=== PATIENT | female | born 1985 | race Caucasian/White ===

== ENCOUNTER 2018-11-11 15:58 | Outpatient (CLI) | payer SELFPAY | END 2018-11-11 16:27 | disposition home or self-care (01) | LOC: ORTHO 15:58 | PROVIDERS: ATTEND Orthopaedic Surgery | DX: Z47.2 Encounter for removal of internal fixation device (principal) | CPT/HCPCS: 73610; G0463 ==

== ENCOUNTER 2018-12-17 11:01 | Day surgery (SDC) | payer MEDICAID ==
[2018-12-12 11:33] LABS: ALBUMIN 3.5 G/DL (3.4-5.0); ALBUMIN/GLOBULIN RATIO 0.9 (1.1-1.5); ALKALINE PHOSPHATASE 76 IU/L (46-116); BLOOD UREA NITROGEN 10 MG/DL (7-18); BUN/CREATININE RATIO 11.9 (6.6-38.0); CALCIUM 8.7 MG/DL (8.5-10.1); CHLORIDE 106 MMOL/L (99-107); CREATININE 0.84 MG/DL (0.40-0.90); PRE OP ALT 22 U/L (30-65); PRE OP ANION GAP 7 (8-16); PRE OP AST 16 U/L (10-37); PRE OP BILIRUB, TOTAL 0.3 MG/DL (0.0-1.0); PRE OP GLUCOSE 94 MG/DL (70-104); PRE OP POTASSIUM 4.7 MMOL/L (3.4-5.1); PRE OP SODIUM 140 MMOL/L (135-145); TOTAL CARBON DIOXIDE 26.8 MMOL/L (24-32); TOTAL PROTEIN 7.2 G/DL (6.4-8.2); eGFR 79 ML/MIN
[2018-12-12 11:35] LABS: BASOPHILS % (AUTO) 0.9 % (0-1); EOSINOPHILS # (AUTO) 0.2 X10'3 (0-0.9); EOSINOPHILS % (AUTO) 4.2 % (0-6); LYMPHOCYTES # (AUTO) 1.7 X10'3 (1.1-4.8); LYMPHOCYTES % (AUTO) 35.7 % (21-51); MEAN CORPUSCULAR HEMOGLOBIN 31.9 PG (27.0-31.0); MEAN CORPUSCULAR HGB CONC 33.8 g/dL (33.0-36.5); MEAN CORPUSCULAR VOLUME 94.4 FL (78-98); MEAN PLATELET VOLUME 8.4 FL (7.4-10.4); MONOCYTES # (AUTO) 0.5 X10'3 (0-0.9); MONOCYTES % (AUTO) 11.5 % (2-12); NEUTROPHILS # (AUTO) 2.2 X10'3 (1.8-7.7); NEUTROPHILS % (AUTO) 47.7 % (42-75); PRE OP HEMATOCRIT 36.6 % (35.0-45.0); PRE OP HEMOGLOBIN 12.4 g/dL (12.0-16.0); PRE OP PLATELET COUNT 331 X10'3 (140-440); RED BLOOD COUNT 3.88 X10'6 (4.20-5.60); RED CELL DISTRIBUTION WIDTH 13.7 % (11.5-14.5)
[~2018-12-17] VITALS: Ht 165.1 cm; Wt 85.7 kg
[2018-12-17] VITALS (8 sets, daily range): BP systolic 91–120; BP diastolic 60–74
[~2018-12-17 11:01] MED LIST: BUPIVAcaine/PF 2.5 mg/ml (0.25%) 30ml vial ONE; ESCI5TAB PO; LAMO200T2 PO; MIRT15TA8 PO; bacitracin 15gm ointment TP ONE; ceFAZolin 1000mg inj ONE; cefazolin/dext.iso 2gm/100 ML IV ONE; famotidine 20mg tablet PO ONE; ringers solution, lacted 1,000 ML IV SCH
[2018-12-17] MEDS ORDERED: fentaNYL/PF 50MCG/1 ML 2ML syringe ONE (11:56)
[2018-12-17] MEDS ORDERED: midazolam 2 mg/2 ml injection ONE ×2 (11:56→12:05)
[2018-12-17] MEDS ORDERED: ROPIVAcaine 0.5% (5mg/ml) 30ml vial ONE (11:57)
[2018-12-17] MEDS ORDERED: propofol inj 20 ML IV ONE (12:44)
--- NOTE | 2018-12-17 12:48 | NUR ---
Received from OR via [facility], accompanied by Anesthesiologist DR LEDBETTER and report given by Anesthesiolgist. PT AWAKE ON PHONE, DENIES PAIN, RIGHT ANKLE FOOT W/PANKAJ WRAP COVERING SMALL INCISION CDI. Addendum: 12/17/18 at 1415 by Tamara Ennis RN Amended: Links added.
--- NOTE | 2018-12-17 13:48 | NUR ---
PT UP TO BATHROOM FOR VOID W/CRUTCHES, BACK TO BED, MOBILITY GOOD W/CRUTCHES, D/C INSTRUCTIONS GIVEN AND GONE OVER W/PT, INCLUDING NERVE BLOCK INFORMATION, PT VERBALIZES UNDERSTANDING, PT D/CD TO HOME VIA W/C TO PRIVATE VEHICLE W/CRUTCHES W/O INCIDENT. Addendum: 12/17/18 at 1419 by Tamara Ennis RN Amended: Links added.
== END 2018-12-17 12:48 | disposition home or self-care (01) ==
LOC: PAS 11:01
PROVIDERS: ATTEND Orthopaedic Surgery
DX: T84.84XA Pain due to internal orthopedic prosthetic devices, implants and grafts, initial encounter (principal); F31.9 Bipolar disorder, unspecified; Z87.891 Personal history of nicotine dependence; Z68.31 Body mass index [BMI] 31.0-31.9, adult; E66.9 Obesity, unspecified; Z79.899 Other long term (current) drug therapy; Y83.8 Other surgical procedures as the cause of abnormal reaction of the patient, or of later complication, without mention of misadventure at the time of the procedure; Y92.89 Other specified places as the place of occurrence of the external cause
CPT/HCPCS: 20680; 36415; 80053; 82948; 85025; J0690; J2250; J2704; J3010; J3490; A4215; A4618; A6449; A7000; J2795; J7120